=== PATIENT | male | born 1985 ===

== ENCOUNTER 2020-10-14 17:05 | Emergency (ER) | payer OTHER ==
[~2020-10-14] VITALS: Ht 172.7 cm; Wt 72.6 kg
== END 2020-10-14 18:38 | disposition left against medical advice (07) ==
LOC: ER 17:05
DX: R55 Syncope and collapse (principal); Z53.21 Procedure and treatment not carried out due to patient leaving prior to being seen by health care provider
CPT/HCPCS: 99282